=== PATIENT | male | born 1995 | race Caucasian/White ===

== ENCOUNTER 2023-02-11 13:27 | Emergency (ER) | payer OTHER ==
[2023-02-11 13:39] VITALS: BP 142/82; PULSE 105; RESP 18; TEMP 99.1; BMI 28.8
== END 2023-02-11 15:20 | disposition home or self-care (01) ==
LOC: JERFT 13:27
DX: Z76.0 Encounter for issue of repeat prescription (principal)
CPT/HCPCS: 99281-25